=== PATIENT | female | born 1970 | race Caucasian/White ===

== ENCOUNTER 2017-12-28 19:22 | Emergency (ER) | payer BC ==
[2017-12-28 19:42] VITALS: BP 130/80
--- NOTE | 2017-12-28 19:52 | UC ---
FLU HPI - HPI Summary HPI Summary: Pt presents with fever, headache, body aches, fatigue, and dry cough since last night. She says that her is in the hospital with influenza and she was recommended to be seen for treatment. She has not taken anything for her symptoms. - History of Current Complaint Chief Complaint: UCRespiratory Stated Complaint: HEADACHE, COUGH, ANF FEVER Time Seen by Provider: 12/28/17 19:51 Hx Obtained From: Patient Hx Last Menstrual Period: 1 WEEK AGO ?: No Onset/Duration: Sudden Onset Severity Currently: Mild Severity Initially: Mild Pain Intensity: 3 Pain Scale Used: 0-10 Numeric - Allergy/Home Medications Allergies/Adverse Reactions: Allergies Allergy/AdvReac Type Severity Reaction Status Date / Time amoxicillin Allergy Unknown Unknown Verified 12/28/17 19:42 Reaction Details PMH/Surg Hx/FS Hx/Imm Hx Previously Healthy: Yes - Surgical History Surgical History: Yes Surgery Procedure, Year, and Place: gall bladder removal. eye surgery. foot surgery. appendectomy. hernia - Family History Known Family History: Positive: None - Social History Occupation: Employed Full-time Lives: With Family Alcohol Use: None Substance Use Type: None Smoking Status (MU): Never Smoked Tobacco Household Exposure Type: Cigarettes - Immunization History Most Recent Influenza Vaccination: 2014 Most Recent Tetanus Shot: utd Review of Systems Constitutional: Fever, Fatigue, Other - Body aches Skin: Negative Eyes: Negative ENT: Negative Respiratory: Cough Cardiovascular: Negative Gastrointestinal: Negative Musculoskeletal: Negative Neurological: Negative Psychological: Negative All Other Systems Reviewed And Are Negative: Yes Physical Exam Triage Information Reviewed: Yes Appearance: Well-Appearing, No Pain Distress, Well-Nourished Vital Signs: Initial Vital Signs Temp 98.8 F 12/28/17 19:38 Pulse 83 12/28/17 19:38 Resp 16 12/28/17 19:38 BP 130/80 12/28/17 19:38 Pulse Ox 100 12/28/17 19:38 Vital Signs Reviewed: Yes Eyes: Positive: Conjunctiva Clear. Negative: Conjunctiva Inflamed, Discharge ENT: Positive: Hearing grossly normal, Pharynx normal, TMs normal, Uvula midline. Negative: Pharyngeal erythema, Nasal congestion, Nasal drainage, TM bulging, TM dull, TM red, Tonsillar swelling, Tonsillar exudate, Hoarse voice, Sinus tenderness Neck: Positive: Supple, Nontender, No Lymphadenopathy Respiratory: Positive: Chest non-tender, Lungs clear, Normal breath sounds, No respiratory distress, No accessory muscle use Cardiovascular: Positive: RRR, No Murmur, Pulses Normal Neurological: Positive: Alert Psychological: Positive: Age Appropriate Behavior Skin: Negative: rashes Flu Course/Dx - Course Course Of Treatment: Suspect influenza or viral illness - given her 's hospitalization with influenza, will treat pt with tamiflu. - Differential Dx/Diagnosis Provider Diagnoses: Tamiflu Discharge - Discharge Plan Condition: Stable Disposition: HOME Prescriptions: Oseltamivir CAP* [Tamiflu CAP*] 75 mg PO BID #10 cap Patient Education Materials: Influenza (ED) Forms: *Work Release Referrals: Kalyani Morrell MD [Primary Care Provider] - Additional Instructions: If you develop a fever, shortness of breath, chest pain, new or worsening symptoms - please call your PCP or go to the ED.
== END 2017-12-28 20:17 | disposition home or self-care (01) ==
LOC: UCEAST 19:22
DX: R50.9 Fever, unspecified (principal); R51 Headache; R52 Pain, unspecified; R53.83 Other fatigue; R05 Cough; Z88.3 Allergy status to other anti-infective agents
CPT/HCPCS: 99212; G0463

== ENCOUNTER 2018-01-15 15:55 | Emergency (ER) | payer BC ==
[2018-01-15 16:19] VITALS: BP 141/89
--- NOTE | 2018-01-15 16:20 | UC ---
Dental HPI - HPI Summary HPI Summary: Pt presents with lower left tooth pain for the last 3 days. She woke up this morning with some swelling and increased pain. Called her PCP, but was unable to get an appointment. She says she has had a dental infection before and that this feels the same. She is eating and drinking without difficulty. Denies fever or chills. - History of Current Complaint Chief Complaint: UCDentalProblem Stated Complaint: TOOTH COMPLAINT Time Seen by Provider: 01/15/18 16:19 Hx Obtained From: Patient Hx Last Menstrual Period: 12/31/17 Onset/Duration: Gradual Onset Severity: Moderate Pain Intensity: 6 Pain Scale Used: 0-10 Numeric - Allergies/Home Medications Allergies/Adverse Reactions: Allergies Allergy/AdvReac Type Severity Reaction Status Date / Time No Known Allergies Allergy Verified 01/15/18 16:11 Home Medications: Home Medications Ibuprofen TAB* [Motrin TAB* 800 MG] 800 mg PO ONCE 01/15/18 [History Confirmed 01/15/18] PMH/Surg Hx/FS Hx/Imm Hx Previously Healthy: Yes - Surgical History Surgical History: Yes Surgery Procedure, Year, and Place: gall bladder removal. eye surgery. foot surgery. appendectomy. umbilical hernia - Family History Known Family History: Positive: None - Social History Occupation: Employed Full-time Lives: With Family Alcohol Use: None Substance Use Type: None Smoking Status (MU): Never Smoked Tobacco Household Exposure Type: Cigarettes - Immunization History Most Recent Influenza Vaccination: 2014 Most Recent Tetanus Shot: utd Review of Systems Constitutional: Negative Skin: Negative Eyes: Negative ENT: Dental Pain Respiratory: Negative Cardiovascular: Negative Neurological: Negative Psychological: Negative All Other Systems Reviewed And Are Negative: Yes Physical Exam Triage Information Reviewed: Yes Appearance: Well-Appearing, No Pain Distress, Obese Vital Signs: Initial Vital Signs Temp 98.9 F 01/15/18 16:12 Pulse 67 01/15/18 16:12 Resp 18 01/15/18 16:12 BP 141/89 01/15/18 16:12 Pulse Ox 99 01/15/18 16:12 Vital Signs Reviewed: Yes ENT: Positive: Pharynx normal, Uvula midline. Negative: Pharyngeal erythema, Tonsillar swelling, Tonsillar exudate, Muffled voice, Hoarse voice Dental: Positive: Percussion Tenderness @ - Tooth 31, Gross Decay/Caries @ - Throughout, Dental Fracture @ - Tooth 31, Abscess @ - Tooth 31, Cellulitis @ - Tooth 31. Negative: Cervical Lymphadenopathy, Bleeding Neck: Positive: Supple, Nontender, No Lymphadenopathy Respiratory: Positive: Lungs clear, Normal breath sounds, No respiratory distress, No accessory muscle use Cardiovascular: Positive: RRR, No Murmur, Pulses Normal Neurological: Positive: Alert Psychological: Positive: Age Appropriate Behavior Skin: Negative: rashes Dental Complaint Course/Dx - Course Course Of Treatment: Tooth 31 abscess. - Differential Dx/Diagnosis Provider Diagnoses: Dental abscess tooth 31 Discharge - Discharge Plan Condition: Stable Disposition: HOME Prescriptions: Penicillin VK TAB* [Penicillin VK 250 mg Tab*] 250 mg PO QID #28 tab Patient Education Materials: Dental Abscess (ED) Referrals: Kalyani Morrell MD [Primary Care Provider] - Additional Instructions: If you develop a fever, shortness of breath, chest pain, new or worsening symptoms - please call your PCP or go to the ED. Your blood pressure was high at todays visit. Please see your primary provider within 4 weeks for recheck and re-evaluation.
== END 2018-01-15 16:41 | disposition home or self-care (01) ==
LOC: UCEAST 15:55
DX: K04.7 Periapical abscess without sinus (principal)
CPT/HCPCS: 99212; G0463

== ENCOUNTER 2018-01-26 04:46 | Emergency (ER) | payer BC ==
[2018-01-26] MEDS ORDERED: Clindamycin CAP* 150 MG PO ONE (05:00)
[2018-01-26] MEDS ORDERED: Ibuprofen TAB* 400 MG PO ONE (05:00)
[2018-01-26 05:17] VITALS: BP 132/80
--- NOTE | 2018-01-26 21:22 | ED ---
Shiraz Arce Abhishek, scribed for Aida Wright MD on 01/26/18 at 0506 . Complex/Multi-Sys Presentation - HPI Summary HPI Summary: The pt is a 47 F who is presenting to the [facility] with a chief complaint of dental pain. The pain is described to be located in the left upper region of the mouth. Pt states the pain began at 10 days ago. Medications reviewed and pt stated she has taken penicillin and Advil in order to mitigate the pain. The pain is reported to be an 8/10 in severity initially. Symptoms aggravated by nothing. Symptoms alleviated by nothing. - History Of Current Complaint Chief Complaint: EDDentalPain Time Seen by Provider: 01/26/18 04:53 Hx Obtained From: Patient Onset/Duration: Gradual Onset, Lasting Weeks - since 10 days ago, Still Present Timing: Constant Severity Currently: Severe Location: Pain At: - Left upper tooth ache Aggravating Factor(s): nothing Alleviating Factor(s): nothing - Allergies/Home Medications Allergies/Adverse Reactions: Allergies Allergy/AdvReac Type Severity Reaction Status Date / Time No Known Allergies Allergy Verified 01/26/18 04:53 PMH/Surg Hx/FS Hx/Imm Hx Endocrine/Hematology History: Denies: Hx Diabetes, Hx Thyroid Disease Cardiovascular History: Denies: Hx Hypercholesterolemia, Hx Hypertension, Hx Peripheral Vascular Disease Respiratory History: Denies: Hx Lung Cancer Musculoskeletal History: Denies: Hx Arthritis, Hx Osteoporosis, Hx Scoliosis Sensory History: Denies: Hx Cataracts, Hx Contacts or Glasses, Hx Glaucoma Opthamlomology History: Denies: Hx Cataracts, Hx Contacts or Glasses, Hx Glaucoma Neurological History: Reports: Hx Headaches Denies: Other Neuro Impairments/Disorders Psychiatric History: Denies: Hx Anxiety, Hx Depression - Cancer History Hx Chemotherapy: No Hx Radiation Therapy: No - Surgical History Surgery Procedure, Year, and Place: gall bladder removal. eye surgery. foot surgery. appendectomy. umbilical hernia Infectious Disease History: No Infectious Disease History: Denies: History Other Infectious Disease, Traveled Outside the [place] in Last 30 Days - Family History Known Family History: Positive: None Family History: Reviewed and Noncontributory - Social History Alcohol Use: None Substance Use Type: Reports: None Smoking Status (MU): Never Smoked Tobacco Review of Systems Constitutional: Negative Eyes: Negative Positive: Dental Pain - Left upper tooth ache Cardiovascular: Negative Respiratory: Negative Gastrointestinal: Negative Genitourinary: Negative Musculoskeletal: Negative Skin: Negative Neurological: Negative Psychological: Normal All Other Systems Reviewed And Are Negative: Yes Physical Exam - Summary Physical Exam Summary: VITAL SIGNS: Reviewed. GENERAL: ~Patient is a well-developed and nourished (FEMALE) who is lying comfortable in the stretcher. Patient is not in any acute respiratory distress. HEAD AND FACE: No signs of trauma. No ecchymosis, hematomas or skull depressions. No sinus tenderness. EYES: PERRLA, EOMI x 2, No injected conjunctiva, no nystagmus. EARS: Hearing grossly intact. Ear canals and tympanic membranes are within normal limits. MOUTH: Broken tooth, Left upper molar, with gingivitis NECK: Supple, trachea is midline, no adenopathy, no JVD, no carotid bruit, no c- spine tenderness, neck with full ROM. CHEST: Symmetric, no tenderness at palpation LUNGS: Clear to auscultation bilaterally. No wheezing or crackles. CVS: Regular rate and rhythm, S1 and S2 present, no murmurs or gallops appreciated. ABDOMEN: Soft, non-tender. No signs of distention. No rebound no guarding, and no masses palpated. Bowel sounds are normal. EXTREMITIES: FROM in all major joints, no edema, no cyanosis or clubbing. NEURO: Alert and oriented x 3. No acute neurological deficits. Speech is normal and follows commands. SKIN: Dry and warm Triage Information Reviewed: Yes Vital Signs On Initial Exam: Initial Vitals Temp Pulse Resp BP Pulse Ox 99.7 F 72 16 129/80 99 01/26/18 04:48 01/26/18 04:48 01/26/18 04:48 01/26/18 04:48 01/26/18 04:48 Vital Signs Reviewed: Yes Diagnostics - Vital Signs Vital Signs Temp Pulse Resp BP Pulse Ox 01/26/18 04:48 99.7 F 72 16 129/80 99 - Laboratory Lab Statement: Any lab studies that have been ordered have been reviewed, and results considered in the medical decision making process. Complex Multi-Symp Course/Dx Course Of Treatment: The pt is a 47 F who is presenting to the [facility] with dental pain. The dental pain is described to be located at the left upper molar region of the mouth. The pt has taken advil and penicillin to mitgate the pain. The dx will be tooth ache and gingivitis. The pt will be discharged home and recommended to follow up with dentist within 2 to 3 days. - Diagnoses Provider Diagnoses: Toothache, Gingivitis Discharge - Discharge Plan Condition: Stable Disposition: HOME Prescriptions: Clindamycin Cap(NF) [Clindamycin Cap 300 mg Cap(NF)] 300 mg PO Q6H #30 cap Ibuprofen TAB* [Motrin TAB* 800 MG] 800 mg PO Q6H PRN #30 tab PRN Reason: Pain Patient Education Materials: Gingivitis (ED), Toothache (ED) Referrals: Kalyani Morrell MD [Primary Care Provider] - (Follow up with PCP and Dentist within 2 to 3 days) Additional Instructions: RETURN TO EMERGENCY DEPARTMENT FOR ANY NEW OR WORSENING SYMPTOMS The documentation as recorded by the Shiraz marie Abhishek accurately reflects the service I personally performed and the decisions made by Kyle spencer Abdul, MD.
== END 2018-01-26 05:17 | disposition home or self-care (01) ==
LOC: ED 04:46
DX: K08.89 Other specified disorders of teeth and supporting structures (principal); K05.10 Chronic gingivitis, plaque induced
CPT/HCPCS: 99282; A9270-GY

== ENCOUNTER 2018-09-07 07:10 | Emergency (ER) | payer BC ==
--- NOTE | 2018-09-07 07:45 | ED ---
Skin Complaint - HPI Summary HPI Summary: Patient is a 47-year-old female who presents emergency department for a tick bite to posterior left upper leg. Pt. states she noticed tick bite about 24 hours ago. Her family pulled it out. Pt. is unsure how long tick was present for. She states she is outside a lot and was recently stacking wood. Pt. also notes that she had a low grade fever around 100.4F and a headache last night. She otherwise denies URI sxs. She has no past medical hx. Symptoms are mild in severity. No current modifying factors. - History of Current Complaint Chief Complaint: EDGeneral Time Seen by Provider: 09/07/18 07:23 Stated Complaint: TICK BITE IN LT LEG Hx Obtained From: Patient Hx Last Menstrual Period: 12/31/17 Pain Intensity: 0 - Allergy/Home Medications Allergies/Adverse Reactions: Allergies Allergy/AdvReac Type Severity Reaction Status Date / Time No Known Allergies Allergy Verified 09/07/18 07:17 PMH/Surg Hx/FS Hx/Imm Hx Previously Healthy: Yes Endocrine/Hematology History: Denies: Hx Diabetes, Hx Thyroid Disease Cardiovascular History: Denies: Hx Hypercholesterolemia, Hx Hypertension, Hx Peripheral Vascular Disease Respiratory History: Denies: Hx Lung Cancer Musculoskeletal History: Denies: Hx Arthritis, Hx Osteoporosis, Hx Scoliosis Sensory History: Denies: Hx Cataracts, Hx Contacts or Glasses, Hx Glaucoma Opthamlomology History: Denies: Hx Cataracts, Hx Contacts or Glasses, Hx Glaucoma Neurological History: Reports: Hx Headaches Denies: Other Neuro Impairments/Disorders Psychiatric History: Denies: Hx Anxiety, Hx Depression - Cancer History Hx Chemotherapy: No Hx Radiation Therapy: No - Surgical History Surgery Procedure, Year, and Place: gall bladder removal. eye surgery. foot surgery. appendectomy. umbilical hernia Infectious Disease History: No Infectious Disease History: Denies: History Other Infectious Disease, Traveled Outside the [place] in Last 30 Days - Family History Known Family History: Positive: None, Other - Noncontributory Family History: Reviewed and Noncontributory - Social History Occupation: Employed Full-time Lives: With Family Alcohol Use: Rare Alcohol Amount: 1-2 times a year Substance Use Type: Reports: None Smoking Status (MU): Never Smoked Tobacco Review of Systems Positive: Fever ENT: Negative Cardiovascular: Negative Positive: Rash, Other - tick bite Positive: Headache All Other Systems Reviewed And Are Negative: Yes Physical Exam Triage Information Reviewed: Yes Vital Signs On Initial Exam: Initial Vitals Temp Pulse Resp BP Pulse Ox 97.8 F 83 16 126/64 100 09/07/18 07:12 09/07/18 07:12 09/07/18 07:12 09/07/18 07:12 09/07/18 07:12 Vital Signs Reviewed: Yes Appearance: Positive: Well-Appearing - Pt. lying on bed in NAD. Skin: Positive: Warm, Dry, Other - Small area of erythema noted to the posterior upper left LE. Mild surrounding historical site guide erythema. No induration or fluctuance. Head/Face: Positive: Normal Head/Face Inspection Eyes: Positive: Normal, EOMI Neurological: Positive: Normal, CN Intact II-III Psychiatric: Positive: Affect/Mood Appropriate Diagnostics - Vital Signs Vital Signs Temp Pulse Resp BP Pulse Ox 09/07/18 07:12 97.8 F 83 16 126/64 100 - Laboratory Lab Statement: Any lab studies that have been ordered have been reviewed, and results considered in the medical decision making process. Course/Dx - Course Course Of Treatment: Pt. presenting for tick bite. She is afebrile and well appearing. Pt. is unsure when she contracted tick and states she has had lots of potential exposures. Pt. also notes fever and h/a. Will start doxycycline. Advised to see PCP next week for lyme titer and extension of doxy if positive. Pt. understands and agrees with plan. - Diagnoses Provider Diagnoses: Tick bite Discharge - Sign-Out/Discharge Documenting (check all that apply): Patient Departure - Discharge Plan Condition: Good Disposition: HOME Prescriptions: DOXYcycline CAP(*) [DOXYcycline 100MG CAP(*)] 100 mg PO BID #20 cap Patient Education Materials: Tick Bite (ED) Referrals: Kalyani Morrell MD [Primary Care Provider] - Additional Instructions: Schedule a follow up appointment with PCP next week for lyme test Take doxycycline as directed Doxycycline may need to be extended if lyme test are positive Return to ER if symptoms change or worsen - Billing Disposition and Condition Condition: GOOD Disposition: Home
[2018-09-07 07:46] VITALS: BP 128/86
== END 2018-09-07 07:45 | disposition home or self-care (01) ==
LOC: ED 07:10
DX: S70.362A Insect bite (nonvenomous), left thigh, initial encounter (principal); W57.XXXA Bitten or stung by nonvenomous insect and other nonvenomous arthropods, initial encounter; Y92.9 Unspecified place or not applicable
CPT/HCPCS: 99282

== ENCOUNTER 2019-12-13 16:46 | Emergency (ER) | payer BC, OTHER ==
[2019-12-13 16:54] VITALS: BP 127/75
--- NOTE | 2019-12-13 18:31 | UC ---
Eye Complaint HPI - HPI Summary HPI Summary: ONSET YESTERDAY OF BILATERAL EYE IRRITATION WITH CLEAR DRAINAGE. LEFT EYE FEELS WORSE THAN RIGHT. SHE DENIES ANY RECENT PERSONAL ILLNESS BUT HER HAS HAD A LOWER RESPIRATORY INFECTION. NO VISUAL DISTURBANCES. NO FB SENSATION. - History of Current Complaint Chief Complaint: UCEye Stated Complaint: EYE COMPLAINT Time Seen by Provider: 12/13/19 18:16 Hx Obtained From: Patient Hx Last Menstrual Period: 12/31/17 Onset/Duration: Gradual Onset, Lasting Days - 1 DAY, Still Present Timing: Constant Severity Initially: Moderate Severity Currently: Moderate Pain Intensity: 5 Pain Scale Used: 0-10 Numeric Location of Injury: Conjunctiva Aggravating Factor(s): Nothing Alleviating Factor(s): Nothing Associated Signs And Symptoms: Positive: Drainage (Clear). Negative: Photophobia, Vision Impairment Bilateral - Allergies/Home Medications Allergies/Adverse Reactions: Allergies Allergy/AdvReac Type Severity Reaction Status Date / Time No Known Allergies Allergy Verified 12/13/19 16:55 PMH/Surg Hx/FS Hx/Imm Hx Previously Healthy: Yes - Surgical History Surgical History: Yes Surgery Procedure, Year, and Place: gall bladder removal. eye surgery. foot surgery. appendectomy. umbilical hernia - Family History Known Family History: Positive: None, Other - Noncontributory Family History: Reviewed and Noncontributory - Social History Alcohol Use: Rare Alcohol Amount: 1-2 times a year Substance Use Type: None Smoking Status (MU): Never Smoked Tobacco Household Exposure Type: Cigarettes - Immunization History Most Recent Influenza Vaccination: 2014 Most Recent Tetanus Shot: utd Review of Systems All Other Systems Reviewed And Are Negative: Yes Constitutional: Positive: Negative Eyes: Positive: Drainage ENT: Positive: Negative Respiratory: Positive: Negative Cardiovascular: Positive: Negative Gastrointestinal: Positive: Negative Physical Exam Triage Information Reviewed: Yes Appearance: Well-Appearing, No Pain Distress, Well-Nourished Vital Signs: Initial Vital Signs Temp 97.8 F 12/13/19 16:51 Pulse 74 12/13/19 16:51 Resp 18 12/13/19 16:51 BP 127/75 12/13/19 16:51 Pulse Ox 100 12/13/19 16:51 Vital Signs Reviewed: Yes Eyes: Positive: Conjunctiva Clear, Other: - PERRL, EOMI. Negative: Discharge Neck: Positive: Supple Respiratory: Positive: No respiratory distress, No accessory muscle use Cardiovascular: Positive: Pulses Normal Abdomen Description: Positive: Soft Musculoskeletal: Positive: No Edema Neurological: Positive: Alert Psychological: Positive: Age Appropriate Behavior Skin: Negative: Rashes Eye Complaint Course/Dx - Course Course Of Treatment: PHYSICAL EXAM NOT CONSISTENT WITH CONJUNCTIVITIS HOWEVER BASED ON PATIENT'S DESCRIPTION OF SYMPTOMS WILL GO AHEAD AND COVER WITH ANTIBIOTIC EYEDROPS. SHE DOES WORK IN THE [employer] AND SO IS QUITE CONCERNED ABOUT DEVELOPING PINK EYE. HER SYMPTOMS MAY ALSO BE EXPLAINED BY ALLERGIC RATHER THAN INFECTIOUS CONJUNCTIVITIS. I HAVE ADVISED SHE CONSIDER OTC ALLERGY EYEDROPS WELL AN ANTIHISTAMINE. FOLLOW-UP WITH EYE DOCTOR IF SYMPTOMS NOT IMPROVING WITH TREATMENT. - Differential Dx/Diagnosis Provider Diagnosis: Pain of both eyes Discharge ED - Sign-Out/Discharge Documenting (check all that apply): Patient Departure All imaging exams completed and their final reports reviewed: No Studies - Discharge Plan Condition: Stable Disposition: HOME Prescriptions: Ciprofloxacin 0.3% OPTH.NAVA* [Cipro 0.3% Opth*] 1 drop BOTH EYES Q4H #1 btl Patient Education Materials: Conjunctivitis (ED) Forms: *Work Release Referrals: Kalyani Morrell MD [Primary Care Provider] - If Needed Additional Instructions: YOUR PRESENTATION IS NOT TYPICAL FOR AN INFECTIOUS CONJUNCTIVITIS HOWEVER OUT OF AN ABUNDANCE OF CAUTION WILL GO AHEAD AND TREAT WITH ANTIBIOTIC EYEDROPS. YOU MAY HAVE ALLERGIC CONJUNCTIVITIS. CONSIDER TAKING AN ANTIHISTAMINE DAILY WHILE YOU HAVE SYMPTOMS AND IF YOU ARE NOT IMPROVING WITH THE ANTIBIOTIC EYEDROPS I WOULD CONSIDER AN ALLERGY EYEDROP (OTC). FOLLOW-UP WITH YOUR EYE DOCTOR IF YOU'RE NOT IMPROVING EXPECTED WITH THIS TREATMENT. - Billing Disposition and Condition Condition: STABLE Disposition: Home
== END 2019-12-13 18:30 | disposition home or self-care (01) ==
LOC: UCEAST 16:46
DX: H57.13 Ocular pain, bilateral (principal)
CPT/HCPCS: 99212; G0463

== ENCOUNTER 2022-01-21 05:43 | Observation (INO) ==
[2022-01-21] MEDS ORDERED: Buffered Lidocaine 1% SYRIN 1 ml INTRADERM ONE (06:00)
[2022-01-21] MEDS ORDERED: Lactated Ringers 1000 ml BAG 1,000 ML IV SCH (06:00)
[2022-01-21] MEDS ORDERED: ceFAZolin 2 GM PREMIX 2 GM/50 ML BAG ONE (06:15)
[2022-01-21] MEDS ORDERED: Lidocaine 1% w EPI 1:200,000 SDV 30 ML VIAL ONE (07:00)
[2022-01-21] MEDS ORDERED: ceFAZolin VIAL VIAL ONE (07:01)
[2022-01-21] MEDS ORDERED: Lidocaine 2% PF 5 ML VIAL ONE ×2 (07:10→12:26)
[2022-01-21] MEDS ORDERED: fentaNYL 100 mcg/2 ml 50 MCG/ML VIAL ONE ×4 (07:10→14:15)
[2022-01-21] MEDS ORDERED: Midazolam 2 mg/2 ml VIAL 1 mg/ml 2 ml VIAL (2 mg) ONE (07:10)
[2022-01-21] MEDS ORDERED: Propofol 10 MG/ML 20 ML BTL ONE ×4 (07:10→11:46)
[2022-01-21] MEDS ORDERED: Dexamethasone IV 4 MG/ML VIAL 1 ml VIAL ONE (07:10)
[2022-01-21] MEDS ORDERED: Rocuronium 50 mg VIAL 10 mg/ml 5 ml VIAL (50 mg) ONE (07:10)
[2022-01-21] MEDS ORDERED: Succinylcholine 200 mg VIAL 20 mg/ml 10 ml VIAL (200 mg) ONE (07:19)
[2022-01-21] MEDS ORDERED: Remifentanil 2 MG VIAL ONE (07:36)
[2022-01-21] MEDS ORDERED: Ondansetron 4 mg VIAL 2 MG/ML 2 ml VIAL IV PRN ×2 (09:25→13:13)
[2022-01-21] MEDS ORDERED: Prochlorperazine 5 mg/ml 2 ml VIAL (10 mg) IV PRN (09:25)
[2022-01-21] MEDS ORDERED: Naloxone 0.4 mg VIAL 0.4 mg/ml 1 ml VIAL IV PRN (09:25)
[2022-01-21] MEDS ORDERED: diPHENhydraMINE IV 50 MG/ML 1 ml VIAL (BENADRYL) IV PRN (09:25)
[2022-01-21] MEDS ORDERED: Phenylephrine 40 mcg/mL 10mL (400mcg) SYRINGE ONE (09:26)
[2022-01-21] MEDS ORDERED: Levalbuterol HFA INHALER MDI ONE (09:53)
[2022-01-21] MEDS ORDERED: Propofol 1,000 MG/100 ML BTL ONE (10:22)
[2022-01-21] MEDS ORDERED: Acetaminophen IV 1 GM/100ML 100 ML IV ONE (11:04)
[2022-01-21] MEDS ORDERED: Propofol 10 mg/ml 100 ML BTL 100 ML ONE (11:47)
[2022-01-21] MEDS ORDERED: Ondansetron 4 mg VIAL 2 MG/ML 2 ml VIAL ONE (12:03)
[2022-01-21] MEDS: fentaNYL 100 mcg/2 ml 50 MCG/ML VIAL IV PRN ×5 (13:10→14:16)
[2022-01-21] MEDS ORDERED: HYDROcodone/ACETAMIN 5/325 mg TAB PO PRN (13:13)
[2022-01-21] MEDS ORDERED: Magnesium Hydroxide LIQ 30 ML UDC PO PRN (13:13)
[2022-01-21] MEDS: HYDROcodone/ACETAMIN 5/325 mg TAB PO PRN ×2 (17:07→22:34)
[2022-01-22] MEDS: HYDROcodone/ACETAMIN 5/325 mg TAB PO PRN ×3 (05:24→13:38)
[2022-01-22 11:03] VITALS: BP 132/62
== END 2022-01-22 15:30 | disposition home or self-care (01) ==
LOC: OR 05:43 → SSU 05:43
PROVIDERS: ADMIT Neurological Surgery; ATTEND Neurological Surgery